=== PATIENT | male | born 1975 | race African-American/Black ===

== ENCOUNTER 2018-01-23 13:16 | Emergency (ER) | payer OTHER ==
[~2018-01-23] VITALS: Ht 172.7 cm; Wt 111.1 kg
[2018-01-23 14:06] VITALS: BP 130/93
== END 2018-01-23 14:36 | disposition home or self-care (01) ==
LOC: ER 13:16
DX: M67.432 Ganglion, left wrist (principal); F17.210 Nicotine dependence, cigarettes, uncomplicated